=== PATIENT | male | born 1985 ===

== ENCOUNTER 2020-05-22 19:55 | Outpatient (CLI) | payer MEDICAID | END 2020-05-22 19:56 | disposition critical access hospital (66) | LOC: EMS 19:55 | PROVIDERS: ATTEND Surgery | DX: R40.4 Transient alteration of awareness (principal) | CPT/HCPCS: A0425; A0433; A0999 ==

== ENCOUNTER 2020-05-22 20:32 | Inpatient (IN) | payer MEDICAID ==
--- NOTE | 2020-05-22 20:40 | ED Physician Documentation ---
PD HPI ALTERED MENTAL STATUS - Stated complaint Stated Complaint: AMS - History obtained from History obtained from: EMS - Additional information Additional information: 34-year-old gentleman with history of hypertension presents by ambulance. Reportedly was drinking with some bodies and then injected some heroin into the left deltoid. Subsequently became obtunded with snoring respirations. Friend started CPR although there was no report of a lost pulse. Narcan was tried on scene but it sounds like nobody knew how to use it correctly. Paramedics were summoned and they administered initially 1.6 mg of Narcan and he did increase hi s respiratory rate but was still obtunded. Subsequently 2 more doses of Narcan were trialed without subsequent further improvement. Therefore the decision was made to intubate and he received 30 mg of etomidate and 200 mg of succinylcholine for the intubation and on the way here he received 4 mg of Versed and 10 mg of vecuronium. Review of Systems Unable to obtain: Intubated PD PAST MEDICAL HISTORY - Present Medications Home Medications: Ambulatory Orders Medication Instructions Recorded Confirmed Home Medications Unobtainable 05/22/20 05/22/20 [HOME MEDICATIONS UNOBTAINABLE] - Allergies Allergies/Adverse Reactions: Allergies Allergy/AdvReac Type Severity Reaction Status Date / Time No Known Drug Allergies Allergy Verified 05/22/20 20:59 PD ED PE NORMAL - Vitals Vital signs reviewed: Yes - General General: Other (He is unresponsive with small but not pinpoint pupils which are not reactive. He is intubated.) - Cardiac Cardiac: RRR, No murmur - Respiratory Respiratory: Clear bilaterally, Other (Being bagged) - Abdomen Abdomen: Soft, Non tender - Back Back: No CVA TTP, No spinal TTP - Derm Derm: Normal color, Warm and dry - Extremities Extremities: No edema, No calf tenderness / cord - Neuro Eye Opening: None Motor: None Verbal: None GCS Score: 3 Results - Vitals Vitals: Vital Signs - 24 hr 05/22/20 05/22/20 05/22/20 20:33 20:58 21:00 Temperature 36.2 C L Heart Rate 98 93 90 Respiratory 15 20 Rate Blood Pressure 141/91 H 127/88 H O2 Saturation 99 97 05/22/20 05/22/20 21:15 21:30 Temperature 36.1 C L 36.2 C L Heart Rate 95 93 Respiratory 20 20 Rate Blood Pressure 128/98 H 128/98 H O2 Saturation 100 99 Oxygen O2 Source Mechanical ventilator - EKG (time done) 2039 Rate: Rate (enter#) (92) Rhythm: NSR [place]: Normal Intervals: Normal CT QRS: Normal Ischemia: ST elevation c/w repol. No: ST depression Computer interpretation: Agree with computer - Labs Labs: Laboratory Tests 05/22/20 05/22/20 05/22/20 20:51 20:56 20:56 WBC 10.8 RBC 4.78 Hgb 14.3 Hct 42.3 MCV 88.5 MCH 29.9 MCHC 33.8 RDW 12.4 Plt Count 271 MPV 10.2 Neut # (Auto) 7.1 H Lymph # (Auto) 2.5 [place] # (Auto) 1.0 Eos # (Auto) 0.1 Baso # (Auto) 0.0 Absolute Nucleated RBC 0.00 Nucleated RBC % 0.0 VBG pH VBG pCO2 VBG pO2 VBG HCO3 VBG Total CO2 VBG O2 Saturation VBG Base Excess Sodium 143 Potassium 3.7 Chloride 104 Carbon Dioxide 21 Anion Gap 18.0 H BUN 18 Creatinine 1.1 Estimated GFR (MDRD) 76 L Glucose 115 H Calcium 8.9 Total Bilirubin 0.4 AST 54 H ALT 59 Alkaline Phosphatase 55 Total Protein 7.9 Albumin 4.5 Globulin 3.4 Albumin/Globulin Ratio 1.3 Lipase 34 TSH Urine Color YELLOW Urine Clarity CLEAR Urine pH 5.5 Ur Specific [place] 1.020 Urine Protein 30 H Urine Glucose (UA) NEGATIVE Urine Ketones NEGATIVE Urine Occult Blood TRACE-LYSE Urine Nitrite NEGATIVE Urine Bilirubin NEGATIVE Urine Urobilinogen 0.2 (NORMAL) Ur Leukocyte Esterase NEGATIVE Urine RBC 0-5 Urine WBC 0-3 Ur Squamous Epith Cells NONE SEEN Amorphous Sediment Rare Urine Bacteria None Seen Urine Casts 6-10 Hyaline Casts Urine Mucus Few Strands Ur Microscopic Review INDICATED Urine Culture Comments NOT INDICATED Salicylates < 6.0 Urine Opiates Screen POSITIVE H Ur Oxycodone Screen POSITIVE H Urine Methadone Screen NEGATIVE Ur Propoxyphene Screen NEGATIVE Acetaminophen < 10 L Ur Barbiturates Screen NEGATIVE Ur Tricyclics Screen NEGATIVE Ur Phencyclidine Scrn NEGATIVE Ur Amphetamine Screen NEGATIVE U Methamphetamines Scrn NEGATIVE U Benzodiazepines Scrn NEGATIVE Urine Cocaine Screen NEGATIVE U Cannabinoids Screen NEGATIVE Ethyl Alcohol 249.3 05/22/20 05/22/20 20:56 20:56 WBC RBC Hgb Hct MCV MCH MCHC RDW Plt Count MPV Neut # (Auto) Lymph # (Auto) [place] # (Auto) Eos # (Auto) Baso # (Auto) Absolute Nucleated RBC Nucleated RBC % VBG pH 7.250 L VBG pCO2 36.1 L VBG pO2 49.5 H VBG HCO3 15.5 L VBG Total CO2 16.6 L VBG O2 Saturation 76.8 VBG Base Excess -10.8 L Sodium Potassium Chloride Carbon Dioxide Anion Gap BUN Creatinine Estimated GFR (MDRD) Glucose Calcium Total Bilirubin AST ALT Alkaline Phosphatase Total Protein Albumin Globulin Albumin/Globulin Ratio Lipase TSH 1.86 Urine Color Urine Clarity Urine pH Ur Specific [place] Urine Protein Urine Glucose (UA) Urine Ketones Urine Occult Blood Urine Nitrite Urine Bilirubin Urine Urobilinogen Ur Leukocyte Esterase Urine RBC Urine WBC Ur Squamous Epith Cells Amorphous Sediment Urine Bacteria Urine Casts Urine Mucus Ur Microscopic Review Urine Culture Comments Salicylates Urine Opiates Screen Ur Oxycodone Screen Urine Methadone Screen Ur Propoxyphene Screen Acetaminophen Ur Barbiturates Screen Ur Tricyclics Screen Ur Phencyclidine Scrn Ur Amphetamine Screen U Methamphetamines Scrn U Benzodiazepines Scrn Urine Cocaine Screen U Cannabinoids Screen Ethyl Alcohol - Rads (name of study) 1v chest Radiology: EMP read contemporaneously (Right IJ Cath in SVW, ETT 3.7cm above fanta) Procedures - Central Line Central Line Preparation: Unable to obtain consent, Time out completed, Ultrasound used, Sterile prep and drape Central line location: Right IJ Central line type: Triple lumen Central line aftercare: Chlorhexidine disc placed, Secured, Placement confirmed, No complications PD MEDICAL DECISION MAKING - ED course ED course: 34-year-old gentleman presents after respiratory but not cardiac arrest after apparent drug alcohol overdose. No evidence or signs of trauma per the paramedics. He was intubated on the way here and on arrival his GCS 3. Central line was placed. He did have some episodic mild hypoxemia which seem to respond to suctioning and increasing his PEEP. He did to start to respond to noxious stimulus including suctioning of the endotracheal tube and propofol was started. No contact information to get a hold of family. We are calling [employer] to see if they have any phone numbers but at least it in the early part of his emergency department stay I am not able to get in touch with friends or family. Dr. Gibson will admit. Eventually I was able to contact his girlfriend, Sophie Saenz who is available at [phone]. - Critical Care Time(min): 45 Time Includes: Direct patient care, Review records, Reassess patient, Document care, Coordinate care, Medical consult Data interpretation: Labs, Pulse ox Procedures excluded from critical care time: Central IV, EKG Departure - Departure Disposition: 66 [facility] DC/Xfer Clinical Impression: Respiratory failure Qualifiers: Chronicity: acute Respiratory failure complication: unspecified whether with hypoxia or hypercapnia Qualified Code(s): J96.00 - Acute respiratory failure, unspecified whether with hypoxia or hypercapnia Drug overdose Qualifiers: Encounter type: initial encounter Injury intent: undetermined intent Qualified Code(s): T50.904A - Poisoning by unspecified drugs, medicaments and biological substances, undetermined, initial encounter Alcohol intoxication Qualifiers: Complication of substance-induced condition: with delirium Qualified Code(s): F10.921 - Alcohol use, unspecified with intoxication delirium Condition: Critical
[2020-05-22 20:53] LABS: BILIRUBIN,URINE NEGATIVE (NEGATIVE); GLUCOSE, URINE (UA) NEGATIVE (NEGATIVE); KETONES,URINE (UA) NEGATIVE (NEGATIVE); LEUKOCYTE ESTERASE, URINE NEGATIVE (NEGATIVE); MUDS CUTOFF CONCENTRATIONS CUTOFF CONC BELOW:; NITRITE,URINE NEGATIVE (NEGATIVE); OCCULT BLOOD,URINE TRACE-LYSE (NEGATIVE); PH,URINE 5.5 PH (5.0-7.5); PROTEIN,URINE 30 mg/dL (NEGATIVE); UROBILINOGEN,URINE 0.2 (NORMAL) E.U./dL (NORMAL)
[2020-05-22 20:55] LABS: CLARITY,URINE CLEAR (CLEAR)
[2020-05-22 21:03] LABS: BASOPHILS % (AUTO) 0.2 %; EOSINOPHILS # (AUTO) 0.1 10^3/uL (0.0-0.7); EOSINOPHILS % (AUTO) 0.6 %; HGB - HEMOGLOBIN 14.3 g/dL (14.0-18.0); LYMPHOCYTES # (AUTO) 2.5 10^3/uL (1.5-3.5); LYMPHOCYTES % (AUTO) 23.3 %; MEAN CORPUSCULAR HEMOGLOBIN 29.9 pg (27.0-31.0); MEAN CORPUSCULAR HGB CONC 33.8 g/dL (32.0-36.0); MEAN CORPUSCULAR VOLUME 88.5 fL (80.0-94.0); MEAN PLATELET VOLUME 10.2 fL (7.4-11.4); MONOCYTES % (AUTO) 9.2 %; NEUTROPHILS # (AUTO) 7.1 10^3/uL (1.5-6.6); PLT - PLATELET COUNT 271 10^3/uL (130-450); RED BLOOD COUNT 4.78 10^6/uL (4.70-6.10); RED CELL DISTRIBUTION WIDTH 12.4 % (12.0-15.0); WHITE BLOOD COUNT 10.8 x10^3/uL (4.8-10.8)
[2020-05-22 21:04] LABS: AMORPHOUS SEDIMENT,UR Rare /LPF; AMPHETAMINE SCREEN,URINE NEGATIVE (NEGATIVE); BACTERIA,URINE None Seen /HPF (None Seen); BENZODIAZEPINES SCREEN, URINE NEGATIVE (NEGATIVE); CASTS, URINE 6-10 Hyaline Casts /LPF; COCAINE SCREEN URINE NEGATIVE (NEGATIVE); METHADONE SCREEN, URINE NEGATIVE (NEGATIVE); METHAMPHETAMINES SCREEN, URINE NEGATIVE (NEGATIVE); MUCUS,URINE Few Strands; OPIATE SCREEN, URINE POSITIVE (NEGATIVE); OXYCODONE SCREEN, URINE POSITIVE (NEGATIVE); RBC,URINE 0-5 /HPF (0-5); SQUAMOUS EPITHELIAL CELL,UR NONE SEEN (<= Few); TRICYCLIC ANTIDEPRESSANT,URINE NEGATIVE (NEGATIVE)
[2020-05-22 21:05] LABS: PROPOXYPHENE SCREEN, URINE NEGATIVE (NEGATIVE)
[2020-05-22 21:05] LABS: VBG BASE EXCESS -10.8 mmol/L (-2 - +2); VBG PCO2 36.1 mmHg (41-51); VBG PH 7.25 (7.31-7.41); VBG PO2 49.5 mmHg (25-47); VBG TOTAL CO2 16.6 mmol/L (24-29)
[2020-05-22] MEDS ORDERED: PROPOFOL 500 MG/50 ML 500 MG/50 ML VIAL IV STA (21:11)
[2020-05-22] MEDS ORDERED: SODIUM CHLORIDE 0.9% 1,000 ML IV STA (21:16)
--- NOTE | 2020-05-22 21:16 | XRAY Report ---
PROCEDURE: Chest for Line Placement INDICATIONS: for post Central Line Placement. TECHNIQUE: One view of the chest was acquired. COMPARISON: None FINDINGS: Surgical changes and devices: ET tube tip is approximately 3.7 cm above the fanta. A right internal jugular central venous catheter tip is in the SVC. Lungs and pleura: No pleural effusions or pneumothorax. Lungs are clear. Mediastinum: Mediastinal contours appear normal. Heart size is enlarged. Bones and chest wall: No suspicious bony lesions. Overlying soft tissues appear unremarkable. IMPRESSION: Right internal jugular central venous catheter tip is in the SVC. ET tube is 3.7 cm above the fanta. No focal infiltrate, pleural effusion or pneumothorax. Reviewed by: Jorge Neri MD on 05/22/2020 9:14 PM PST Approved by: Jorge Neri MD on 05/22/2020 9:14 PM PST Station ID: [id number]
[2020-05-22 21:19] LABS: ACETAMINOPHEN < 10 ug/mL (10-30); ALBUMIN 4.5 g/dL (3.2-5.5); ALBUMIN/GLOBULIN RATIO 1.3 (1.0-2.2); ALKALINE PHOSPHATASE 55 IU/L (42-121); ALT ALANINE AMINOTRANSFERASE 59 IU/L (10-60); AST ASPARTATE AMINOTRANSFERASE 54 IU/L (10-42); BILIRUBIN,TOTAL 0.4 mg/dL (0.2-1.0); BUN - BLOOD UREA NITROGEN 18 mg/dL (6-20); CALCIUM 8.9 mg/dL (8.5-10.3); CARBON DIOXIDE - CO2 21 mmol/L (21-32); CHLORIDE 104 mmol/L (101-111); CREATININE 1.1 mg/dL (0.6-1.2); GLUCOSE 115 mg/dL (70-100); LIPASE 34 U/L (22-51); SALICYLATE < 6.0 mg/dL; SODIUM 143 mmol/L (135-145); TOTAL PROTEIN 7.9 g/dL (6.7-8.2)
[2020-05-22] MEDS ORDERED: ONDANSETRON 4 MG/2 ML VIAL IVP PRN (21:33)
[2020-05-22] MEDS ORDERED: ONDANSETRON ODT 4 MG TABLET TL PRN (21:33)
--- NOTE | 2020-05-22 21:45 | HISTORY & PHYSICAL EXAMINATION ---
Chief Complaint - Chief Complaint Chief Complaint: Acute respiratory failure at a friend's apartment after heroin History of Present Illness - Admitted From Admitted From:: Friend's apartment, via EMS - History Obtained From Records Reviewed: [facility] History obtained from: Dr. Salazar Exam Limitations: Patient is unable to provide any history for himself and there is no contac - History of Present Illness HPI Comment/Other: Mr. Carter is a 34-year-old white male who is brought in by ambulance to the emergency room after heroin overdose. Unfortunately there is no demographic information available for him so I am unable to get any history other than what is provided by the emergency room doctor and sheet metal shop foreman. sheet metal shop foreman report that he has a past medical history of high blood pressure but there is no medications listed for him. Unobtainable. He was drinking with friends in a friend's apartment. He decided to do a heroin shot in his deltoid. He had a loss of consciousness shortly after that. He was unarousable and they panicked and started CPR. EMS was called. By the time EMS arrived there, they did find a pulse. However he was with a very slow respiration rate and he was intubated after succinylcholine and vecuronium. In the emergency room he has a [place] Coma Scale of 3. His vital signs are normal. On 50% FiO2, his O2 sat was 88%. Although there was no witnessed aspiration, the ET tube has copious thick secretions with possible vomitus. His alcohol level is 249. His talk screen is positive for opiates, oxycodone, ethyl alcohol to 49.3. Salicylates negative, acetaminophen less than 10. All other substances negative on the tox screen. We are placing him in the ICU. He already has a central line. We will observe him overnight and see if we can start extubating him tomorrow morning. He will be sedated and paralyzed. We will repeat chest x-rays to make sure he is not developing aspiration pneumonia. History - Past Medical History Cardiovascular: reports: Hypertension Other Past Medical History: Unobtainable at this time - Past Surgical History Other past surgical history: Unobtainable at this time - Family & Social History Family History Comment/Other: Unobtainable at this time Living arrangement: Other (Unobtainable at this time) Living Situation: Other (Unobtainable at this time) Social History Notes: Unobtainable at this time - POLST Patient has POLST: No POLST Status: Full Code Meds/Allgy - Home Medications Home Medications: Ambulatory Orders Medication Instructions Recorded Confirmed Home Medications Unobtainable 05/22/20 05/22/20 [HOME MEDICATIONS UNOBTAINABLE] - Allergies Allergies/Adverse Reactions: Allergies Allergy/AdvReac Type Severity Reaction Status Date / Time No Known Drug Allergies Allergy Verified 05/22/20 20:59 Review of Systems - Other Findings Other Findings: No review of systems obtainable at this time since this patient is sedated and on a vent Prior Level of Functionality: Unknown Exam - Vital Signs Reviewed Vital Signs: Yes Vital Signs: Vital Signs x48h Temp Pulse Resp BP Pulse Ox 05/22/20 21:30 36.2 C L 93 20 128/98 H 99 05/22/20 21:15 36.1 C L 95 20 128/98 H 100 05/22/20 21:00 90 05/22/20 20:58 36.2 C L 93 20 127/88 H 97 05/22/20 20:33 98 15 141/91 H 99 Conclusion/Plan - Problem List (1) Acute respiratory failure with hypoxia Conclusion/Plan: Due to #2 as listed below which is due to #3. Patient has been intubated to protect his airway. His pupils are reactive. 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 Plan: Treatment as stated above in #1 (3) Opioid overdose Conclusion/Plan: Screen is negative for all else. We will check hepatitis panel for completeness sake. HIV panel. We will also have social work consult to see if we get more history from this gentleman. Qualifiers: Encounter type: initial encounter (4) Hypertension Conclusion/Plan: This is per history from Dr. Salazar who got her from the sheet metal shop foreman. At this time no home medication list available. We will continue to monitor and treat as needed. At this time he does not need medication. Qualifiers: Hypertension type: essential hypertension Qualified Code(s): I10 - Essential (primary) hypertension - Lab Results Lab results reviewed: Yes Fish Bones: 05/22/20 20:56 05/22/20 20:56 - Diagnostic Imaging Results Diagnostic Imaging Results: positive: Final report reviewed Diagnostic Imaging Results Comments: EXAM: [id number] ([id number]) PROCEDURE: Chest for Line Placement INDICATIONS: for post Central Line Placement. TECHNIQUE: One view of the chest was acquired. COMPARISON: None FINDINGS: Surgical changes and devices: ET tube tip is approximately 3.7 cm above the fanta. A right internal jugular central venous catheter tip is in the SVC. Lungs and pleura: No pleural effusions or pneumothorax. Lungs are clear. Mediastinum: Mediastinal contours appear normal. Heart size is enlarged. Bones and chest wall: No suspicious bony lesions. Overlying soft tissues appear unremarkable. IMPRESSION: Right internal jugular central venous catheter tip is in the SVC. ET tube is 3.7 cm above the fanta. No focal infiltrate, pleural effusion or pneumothorax. Reviewed by: Jorge Neri MD on 05/22/2020 9:14 PM PST Approved by: Jorge Neri MD on 05/22/2020 9:14 PM PST Core Measures - Anticipated LOS I expect patient to be DC'd or transferred within 96 hours.: Yes - DVT/VTE - Prophylaxis VTE/DVT Device ordered at admit?: Yes
[2020-05-22] MEDS ORDERED: ENOXAPARIN 40 MG/0.4 ML SYRINGE SUBQ STA (21:58)
[2020-05-22 22:29] LABS: C. PNEUMONIAE- RESP PCR PANEL NOT DETECTED
[2020-05-22] MEDS: PROPOFOL 500 MG/50 ML 500 MG/50 ML VIAL IV SCH ×2 (23:00→23:30)
[2020-05-22] MEDS: CHLORHEXIDINE GLUCONATE 15 ML UDC PO SCH (23:02)
[2020-05-22 23:23] LABS: ABG BASE EXCESS -7.2 mmol/L (-2.0-3.0); ABG HCO3 16.5 mmol/L (22.0-26.0); ABG OXYGEN SATURATION 95 % (94-98); ABG PCO2 29 mmHg (34-45); ABG PH 7.38 (7.35-7.45); ABG PO2 82 mmHg (80-100); ABG TCO2 17.4 MMOL/L (21.0-29.0); ALLEN TEST POSITIVE
[2020-05-22] MEDS: SODIUM CHLORIDE FLUSH 0.9% 10 ML SYRINGE IVP SCH (23:31)
[2020-05-23] MEDS: LACTATED RINGERS 1,000 ML IV SCH ×5 (00:18→20:08)
[2020-05-23] MEDS: ACETAMINOPHEN 1,000 MG/100 ML 100 ML IV PRN ×4 (00:37→21:02)
[2020-05-23] MEDS: PROPOFOL 500 MG/50 ML 500 MG/50 ML VIAL IV SCH ×4 (01:53→07:38)
[2020-05-23] MEDS: metroNIDAZOLE 500 MG/100 ML 500 MG/100 ML BAG IV SCH ×3 (01:58→17:28)
[2020-05-23] MEDS: VECURONIUM 10 MG VIAL IVP PRN ×2 (03:23→05:58)
[2020-05-23] MEDS ORDERED: WATER FOR INJECTION,STERILE 10 ML MC ONE ×5 (03:27→06:02)
[2020-05-23] MEDS ORDERED: METOPROLOL 5 MG/5 ML VIAL IVP ONE ×2 (03:43→03:47)
[2020-05-23] MEDS ORDERED: LORazepam 2 MG/ML VIAL IVP STA (05:59)
[2020-05-23 06:04] LABS: ALBUMIN 3.9 g/dL (3.2-5.5); ALBUMIN/GLOBULIN RATIO 1.4 (1.0-2.2); BILIRUBIN,TOTAL 0.5 mg/dL (0.2-1.0); CALCIUM 8.6 mg/dL (8.5-10.3); TOTAL PROTEIN 6.7 g/dL (6.7-8.2)
[2020-05-23] MEDS ORDERED: fentaNYL 100 MCG/2 ML VIAL IVP STA (06:19)
[2020-05-23] MEDS: SODIUM CHLORIDE FLUSH 0.9% 10 ML SYRINGE IVP PRN ×2 (07:08→23:42)
[2020-05-23] MEDS: PANTOPRAZOLE 40 MG VIAL IVP SCH (07:10)
[2020-05-23 07:26] LABS: MAGNESIUM 1.6 mg/dL (1.7-2.8)
--- NOTE | 2020-05-23 07:28 | PHARMACY PROGRESS NOTE ---
- Best Possible Medication History Admit Date and Time: 05/22/202132 Processed by: Nursing Medication History completed: No (PER RN, INFORMATION UNOBTAINABLE) Patient Interview: Pt unable to participate As the person ultimately responsible for medication therapy, providers are able to order a medication from an existing home medication list in [facility] via the "Reconcile Routine" prior to Confirmation of that medication by litigation support analyst. Such practice is discouraged except when the physician, in their clinical judgment, deems that a medical need exists for a medication without regard to previous use.
--- NOTE | 2020-05-23 08:35 | PROVIDER PROGRESS NOTE ---
Assessment/Plan - Problem List (1) Acute respiratory failure with hypoxia Assessment/Plan: He basically suffered a respiratory arrest after the heroin injection and alcohol use and was given CPR plus rescue breaths were started on the scene then bagging in the ambulance on the way to the ER where he was then intubated. He has been able to be extubated this morning. Repeat chest x-ray for possible aspiration pneumonia planned, as he had copious secretions in the ER before intubation and possible vomit was being aspirated. Continue with IV Flagyl for that. Continue supplemental oxygen and wean down as tolerated. (2) Fever Assessment/Plan: Awaiting a chest x-ray result to rule out pneumonitis or aspiration pneumonia. His night nurse noted that his urine was cloudy therefore we will also send off a urinalysis. He was started empirically on Flagyl by the piano technician/admitting doctor because of the witnessed aspiration plus secretions being aspirated from his airway. Follow WBC daily (3) Aspiration into respiratory tract Assessment/Plan: As described in #1. Continue with IV Flagyl. Follow chest x-ray for worsening pneumonitis/consolidation. We will start Mucinex for pulmonary toilet when he is more awake. (4) Opioid overdose Qualifiers: Encounter type: subsequent encounter Injury intent: accidental or unintentional Qualified Code(s): T40.2X1D - Poisoning by other opioids, accidental (unintentional), subsequent encounter Assessment/Plan: This was unintentional and the heroin dose is unknown. Narcan was minimally helpful in reversing the effect and he needed intubation for respiratory arrest. Social Work advised about the entire presentation. (5) Alcohol intoxication Qualifiers: Qualified Code(s): F10.921 - Alcohol use, unspecified with intoxication delirium Assessment/Plan: As per Hx. (6) Hypertension Qualifiers: Hypertension type: essential hypertension Qualified Code(s): I10 - Essential (primary) hypertension Assessment/Plan: As per his girlfriend Sarah, he does not take blood pressure meds yet. - Current Meds Current Meds: Current Medications Generic Name Dose Route Start Last Admin Trade Name Freq PRN Reason Stop Dose Admin Chlorhexidine Gluconate 15 ml 05/22/20 23:00 05/22/20 23:02 Chlorhexidine Gluconate 15 Ml Udc PO 15 ml BID EUSEBIA Administration Acetaminophen 100 mls @ 400 mls/hr 05/22/20 22:26 05/23/20 07:45 Ofirmev IV 400 mls/hr Q6HR PRN Administration FEVER > 100.5 F Lactated Ringer's 1,000 mls @ 125 mls/hr 05/22/20 23:45 05/23/20 07:00 Lr IV 125 mls/hr .Q8H EUSEBIA Infusion Metronidazole 500 mg in 100 mls @ 100 mls/hr 05/23/20 02:00 05/23/20 02:58 Flagyl 500 Mg/100 Ml IV 05/27/20 18:59 Infused Q8H EUSEBIA Infusion Pantoprazole Sodium 40 mg 05/23/20 07:00 05/23/20 07:10 Pantoprazole 40 Mg Vial IVP 40 mg QDAC EUSEBIA Administration Sodium Chloride 10 ml 05/22/20 21:33 05/23/20 07:08 Sodium Chloride Flush 0.9% 10 Ml Syringe IVP 10 ml PRN PRN Administration NEEDED PER PROVIDER ORDERS Sodium Chloride 10 ml 05/23/20 01:00 05/22/20 23:31 Sodium Chloride Flush 0.9% 10 Ml Syringe IVP 10 ml 0100,0900,1700 EUSEBIA Administration - Lab Result Fish Bone Diagrams: 05/22/20 20:56 05/23/20 05:30 - Additional Planning My Orders: My Active Orders 05/23/20 08:20 Extubation [Extubate] [RC] ONCE 05/23/20 08:28 Telemetry- [RC] Q4HR 05/24/20 05:00 BMP - BASIC METABOLIC PANEL [CHEM] DAILYLAB CBC - COMP BLD CT W/AUTO DIFF [HEME] DAILYLAB Subjective - Subjective Patient Reports: Feeling Better, Resting Comfortably Nursing Reports: Other (Per his RN Jadyn, he is able to carry on a conversation and has good long-term memory has very poor short-term memory and keeps repeating the same question repeatedly, about his current situation.) Objective Vital Signs: Vital Signs - 24 hr 05/22/20 05/22/20 05/22/20 20:33 20:58 21:00 Temperature 36.2 C L Heart Rate 98 93 90 Heart Rate [ Monitoring electrodes] Respiratory 15 20 Rate Blood Pressure 141/91 H 127/88 H Blood Pressure [Right Brachial artery] O2 Saturation 99 97 05/22/20 05/22/20 05/22/20 21:15 21:30 21:51 Temperature 36.1 C L 36.2 C L 36.3 C L Heart Rate 95 93 89 Heart Rate [ Monitoring electrodes] Respiratory 20 20 20 Rate Blood Pressure 128/98 H 128/98 H 111/88 H Blood Pressure [Right Brachial artery] O2 Saturation 100 99 97 05/22/20 05/22/20 05/22/20 22:15 23:00 23:23 Temperature 36.5 C Heart Rate Heart Rate [ 94 85 Monitoring electrodes] Respiratory 20 20 Rate Blood Pressure Blood Pressure 129/97 H 107/84 H [Right Brachial artery] O2 Saturation 96 99 05/22/20 05/23/20 05/23/20 23:30 00:00 00:32 Temperature 37.2 C Heart Rate 84 Heart Rate [ 92 Monitoring electrodes] Respiratory 16 Rate Blood Pressure Blood Pressure 143/111 H [Right Brachial artery] O2 Saturation 100 05/23/20 05/23/20 05/23/20 01:11 01:30 02:00 Temperature 37.9 C Heart Rate 141 H Heart Rate [ 122 H 122 H Monitoring electrodes] Respiratory 16 16 Rate Blood Pressure Blood Pressure 108/72 121/87 H [Right Brachial artery] O2 Saturation 95 98 05/23/20 05/23/20 05/23/20 03:00 03:30 03:36 Temperature Heart Rate 150 H Heart Rate [ 120 H 153 H Monitoring electrodes] Respiratory 16 Rate Blood Pressure Blood Pressure 103/73 140/110 H [Right Brachial artery] O2 Saturation 97 05/23/20 05/23/20 05/23/20 03:38 03:40 03:45 Temperature Heart Rate Heart Rate [ 115 H 100 Monitoring electrodes] Respiratory Rate Blood Pressure 140/110 H Blood Pressure 134/91 H 113/81 H [Right Brachial artery] O2 Saturation 05/23/20 05/23/20 05/23/20 03:50 04:00 04:15 Temperature 37.8 C Heart Rate Heart Rate [ 112 H 108 H 109 H Monitoring electrodes] Respiratory 16 Rate Blood Pressure Blood Pressure 127/79 117/77 107/69 [Right Brachial artery] O2 Saturation 96 05/23/20 05/23/20 05/23/20 04:30 05:00 05:35 Temperature Heart Rate 111 H Heart Rate [ 105 H 103 H Monitoring electrodes] Respiratory 16 Rate Blood Pressure Blood Pressure 110/74 109/69 [Right Brachial artery] O2 Saturation 98 05/23/20 05/23/20 05/23/20 06:00 07:00 07:09 Temperature Heart Rate 108 H Heart Rate [ 113 H 104 H Monitoring electrodes] Respiratory 16 16 Rate Blood Pressure Blood Pressure 112/77 108/77 [Right Brachial artery] O2 Saturation 97 97 05/23/20 05/23/20 07:30 08:05 Temperature 39 C H Heart Rate 121 H Heart Rate [ 106 H Monitoring electrodes] Respiratory 16 Rate Blood Pressure Blood Pressure 113/76 [Right Brachial artery] O2 Saturation 97 Oxygen O2 Source Mechanical ventilator I&O (Last 24 Hrs): Intake and Output Totals x24h 05/21/20 05/22/20 05/23/20 23:59 23:59 23:59 Intake Total 0688.239 5964.746 Output Total 800 885 Balance 338.327 559.746 General: Alert HEENT: Atraumatic, EOMI, Mucous membr. moist/pink Neck: Supple, No JVD Neuro: Alert, Disoriented, Non Focal Cardiovascular: Regular rate, No murmurs Respiratory: No respiratory distress, Breath sounds nml, Other (Tender in the sternal area (where he had CPR)) Abdomen: Soft Extremities: No edema - Results Results: Laboratory Results WBC 10.8 x10^3/uL (4.8-10.8) 05/22/20 20:56 RBC 4.78 10^6/uL (4.70-6.10) 05/22/20 20:56 Hgb 14.3 g/dL (14.0-18.0) 05/22/20 20:56 Hct 42.3 % (42.0-52.0) 05/22/20 20:56 MCV 88.5 fL (80.0-94.0) 05/22/20 20:56 MCH 29.9 pg (27.0-31.0) 05/22/20 20:56 MCHC 33.8 g/dL (32.0-36.0) 05/22/20 20:56 RDW 12.4 % (12.0-15.0) 05/22/20 20:56 Plt Count 271 10^3/uL (130-450) 05/22/20 20:56 MPV 10.2 fL (7.4-11.4) 05/22/20 20:56 Neut # (Auto) 7.1 10^3/uL (1.5-6.6) H 05/22/20 20:56 Lymph # (Auto) 2.5 10^3/uL (1.5-3.5) 05/22/20 20:56 [place] # (Auto) 1.0 10^3/uL (0.0-1.0) 05/22/20 20:56 Eos # (Auto) 0.1 10^3/uL (0.0-0.7) 05/22/20 20:56 Baso # (Auto) 0.0 10^3/uL (0.0-0.1) 05/22/20 20:56 Absolute Nucleated RBC 0.00 x10^3/uL 05/22/20 20:56 Nucleated RBC % 0.0 /100WBC 05/22/20 20:56 Bld Gas Analysis Time 2320 05/22/20 23:15 Sample Site RIGHT RADIAL 05/22/20 23:15 ABG pH 7.38 (7.35-7.45) 05/22/20 23:15 ABG pCO2 29 mmHg (34-45) L 05/22/20 23:15 ABG pO2 82 mmHg (80-100) 05/22/20 23:15 ABG HCO3 16.5 mmol/L (22.0-26.0) L 05/22/20 23:15 ABG Total CO2 17.4 MMOL/L (21.0-29.0) L 05/22/20 23:15 ABG O2 Saturation 95 % (94-98) 05/22/20 23:15 ABG Base Excess -7.2 mmol/L (-2.0-3.0) L 05/22/20 23:15 [place] Test POSITIVE 05/22/20 23:15 VBG pH 7.250 (7.31-7.41) L 05/22/20 20:56 VBG pCO2 36.1 mmHg (41-51) L 05/22/20 20:56 VBG pO2 49.5 mmHg (25-47) H 05/22/20 20:56 VBG HCO3 15.5 mmol/L (23-28) L 05/22/20 20:56 VBG Total CO2 16.6 mmol/L (24-29) L 05/22/20 20:56 VBG O2 Saturation 76.8 % (60-80) 05/22/20 20:56 VBG Base Excess -10.8 mmol/L (-2 - +2) L 05/22/20 20:56 Respiration Rate 20 b/min 05/22/20 23:15 O2 Delivery Device VENTILATOR 05/22/20 23:15 Vent Mode SIMV 05/22/20 23:15 FiO2 40.00 05/22/20 23:15 Tidal Volume 550 mL 05/22/20 23:15 PEEP 5 cmH2O 05/22/20 23:15 Pressure Support Vent 10 cmH2O 05/22/20 23:15 Sodium 144 mmol/L (135-145) 05/23/20 05:30 Potassium 3.4 mmol/L (3.5-5.0) L 05/23/20 05:30 Chloride 112 mmol/L (101-111) H 05/23/20 05:30 Carbon Dioxide 22 mmol/L (21-32) 05/23/20 05:30 Anion Gap 10.0 (6-13) 05/23/20 05:30 BUN 16 mg/dL (6-20) 05/23/20 05:30 Creatinine 1.0 mg/dL (0.6-1.2) 05/23/20 05:30 Estimated GFR (MDRD) 85 (>89) L 05/23/20 05:30 Glucose 131 mg/dL (70-100) H 05/23/20 05:30 Calcium 8.6 mg/dL (8.5-10.3) 05/23/20 05:30 Phosphorus 2.0 mg/dL (2.5-4.6) L 05/23/20 05:30 Magnesium 1.6 mg/dL (1.7-2.8) L 05/23/20 05:30 Total Bilirubin 0.5 mg/dL (0.2-1.0) 05/23/20 05:30 AST 38 IU/L (10-42) 05/23/20 05:30 ALT 48 IU/L (10-60) 05/23/20 05:30 Alkaline Phosphatase 46 IU/L (42-121) 05/23/20 05:30 Total Protein 6.7 g/dL (6.7-8.2) 05/23/20 05:30 Albumin 3.9 g/dL (3.2-5.5) 05/23/20 05:30 Globulin 2.8 g/dL (2.1-4.2) 05/23/20 05:30 Albumin/Globulin Ratio 1.4 (1.0-2.2) 05/23/20 05:30 Lipase 34 U/L (22-51) 05/22/20 20:56 TSH 1.86 uIU/mL (0.34-5.60) 05/22/20 20:56 Urine Color YELLOW 05/22/20 20:51 Urine Clarity CLEAR (CLEAR) 05/22/20 20:51 Urine pH 5.5 PH (5.0-7.5) 05/22/20 20:51 Ur Specific Elfrida 1.020 (1.002-1.030) 05/22/20 20:51 Urine Protein 30 mg/dL (NEGATIVE) H 05/22/20 20:51 Urine Glucose (UA) NEGATIVE mg/dL (NEGATIVE) 05/22/20 20:51 Urine Ketones NEGATIVE mg/dL (NEGATIVE) 05/22/20 20:51 Urine Occult Blood TRACE-LYSE (NEGATIVE) 05/22/20 20:51 Urine Nitrite NEGATIVE (NEGATIVE) 05/22/20 20:51 Urine Bilirubin NEGATIVE (NEGATIVE) 05/22/20 20:51 Urine Urobilinogen 0.2 (NORMAL) E.U./dL (NORMAL) 05/22/20 20:51 Ur Leukocyte Esterase NEGATIVE (NEGATIVE) 05/22/20 20:51 Urine RBC 0-5 /HPF (0-5) 05/22/20 20:51 Urine WBC 0-3 /HPF (0-3) 05/22/20 20:51 Ur Squamous Epith Cells NONE SEEN (<= Few) 05/22/20 20:51 Amorphous Sediment Rare /LPF 05/22/20 20:51 Urine Bacteria None Seen /HPF (None Seen) 05/22/20 20:51 Urine Casts 6-10 Hyaline Casts /LPF 05/22/20 20:51 Urine Mucus Few Strands 05/22/20 20:51 Ur Microscopic Review INDICATED 05/22/20 20:51 Urine Culture Comments NOT INDICATED 05/22/20 20:51 Nasal Adenovirus (PCR) NOT DETECTED 05/22/20 21:23 Nasal B. parapertussis DNA (PCR) NOT DETECTED 05/22/20 21:23 Nasal Coronavir 229E PCR NOT DETECTED 05/22/20 21:23 Nasal Coronavir HKU1 PCR NOT DETECTED 05/22/20 21:23 Nasal Coronavir NL63 PCR NOT DETECTED 05/22/20 21:23 Nasal Coronavir OC43 PCR NOT DETECTED 05/22/20 21:23 Nasal Enterovir/Rhinovir PCR NOT DETECTED 05/22/20 21:23 Nasal Influenza B PCR NOT DETECTED 05/22/20 21:23 Nasal Influenza A PCR NOT DETECTED 05/22/20 21:23 Nasal Parainfluen 1 PCR NOT DETECTED 05/22/20 21:23 Nasal Parainfluen 2 PCR NOT DETECTED 05/22/20 21:23 Nasal Parainfluen 3 PCR NOT DETECTED 05/22/20 21:23 Nasal Parainfluen 4 PCR NOT DETECTED 05/22/20 21:23 Nasal RSV (PCR) NOT DETECTED 05/22/20 21:23 Nasal Screen MRSA (PCR) NEGATIVE (NEGATIVE) 05/22/20 22:10 Nasal B.pertussis DNA PCR NOT DETECTED 05/22/20 21:23 Nasal C.pneumoniae (PCR) NOT DETECTED 05/22/20 21:23 King Human Metapneumo PCR NOT DETECTED 05/22/20 21:23 Nasal M.pneumoniae (PCR) NOT DETECTED 05/22/20 21:23 Nasal SARS-CoV-2 (PCR) NOT DETECTED 05/22/20 21:23 Salicylates < 6.0 mg/dL 05/22/20 20:56 Urine Opiates Screen POSITIVE (NEGATIVE) H 05/22/20 20:51 Ur Oxycodone Screen POSITIVE (NEGATIVE) H 05/22/20 20:51 Urine Methadone Screen NEGATIVE (NEGATIVE) 05/22/20 20:51 Ur Propoxyphene Screen NEGATIVE (NEGATIVE) 05/22/20 20:51 Acetaminophen < 10 ug/mL (10-30) L 05/22/20 20:56 Ur Barbiturates Screen NEGATIVE (NEGATIVE) 05/22/20 20:51 Ur Tricyclics Screen NEGATIVE (NEGATIVE) 05/22/20 20:51 Ur Phencyclidine Scrn NEGATIVE (NEGATIVE) 05/22/20 20:51 Ur Amphetamine Screen NEGATIVE (NEGATIVE) 05/22/20 20:51 U Methamphetamines Scrn NEGATIVE (NEGATIVE) 05/22/20 20:51 U Benzodiazepines Scrn NEGATIVE (NEGATIVE) 05/22/20 20:51 Urine Cocaine Screen NEGATIVE (NEGATIVE) 05/22/20 20:51 U Cannabinoids Screen NEGATIVE (NEGATIVE) 05/22/20 20:51 Ethyl Alcohol 249.3 mg/dL 05/22/20 20:56
[2020-05-23] MEDS: SODIUM CHLORIDE FLUSH 0.9% 10 ML SYRINGE IVP SCH ×3 (08:47→23:41)
[2020-05-23] MEDS: CHLORHEXIDINE GLUCONATE 15 ML UDC PO SCH ×2 (10:05→20:23)
--- NOTE | 2020-05-23 10:36 | XRAY Report ---
PROCEDURE: Chest for Line Placement INDICATIONS: OG tube placement TECHNIQUE: One view of the chest was acquired. COMPARISON: Chest x-ray one view, 05/22/2020 at 0844 hours. FINDINGS: Surgical changes and devices: Interval placement of a oral gastric tube. The tip of the orogastric tu be projecting to the stomach. An endotracheal tube is present with the tip 6.6 cm above fanta. A rig ht right IJ central line is seen with the tip projecting to the atrial caval junction. Lungs and pleura: No pleural effusions or pneumothorax. Lungs are clear. Mediastinum: Mediastinal contours appear normal. Heart size is normal. Bones and chest wall: No suspicious bony lesions. Overlying soft tissues appear unremarkable. IMPRESSION: 1. Tubes and lines are as described. 2. The tip of the endotracheal tube measures 6.6 cm above fanta. Please confirm desired position for placement. No significant discrepancy with the preliminary interpretation. Reviewed by: Clint Caal MD on 05/23/2020 10:35 AM PST Approved by: Clint Caal MD on 05/23/2020 10:35 AM PST Station ID: [id number]
--- NOTE | 2020-05-23 10:57 | XRAY Report ---
PROCEDURE: Chest 1 View X-Ray INDICATIONS: fu aspiration on vent TECHNIQUE: One view of the chest was acquired. COMPARISON: 05/22/2020 chest x-ray FINDINGS: Surgical changes and devices: Right internal jugular vein central venous catheter, tip of which is in the mid SVC. Lungs and pleura: No pleural effusions or pneumothorax. Lungs are clear. Mediastinum: Mediastinal contours appear normal. Heart size is normal. Bones and chest wall: No suspicious bony lesions. Overlying soft tissues appear unremarkable. IMPRESSION: No acute process. Reviewed by: Elisa Knutson MD on 05/23/2020 10:55 AM [facility] Approved by: Elisa Knutson MD on 05/23/2020 10:55 AM [facility] Station ID: [id number]
[2020-05-23 11:02] LABS: BILIRUBIN,URINE NEGATIVE (NEGATIVE); GLUCOSE, URINE (UA) NEGATIVE (NEGATIVE); KETONES,URINE (UA) NEGATIVE (NEGATIVE); LEUKOCYTE ESTERASE, URINE NEGATIVE (NEGATIVE); NITRITE,URINE NEGATIVE (NEGATIVE); OCCULT BLOOD,URINE MODERATE (NEGATIVE); PROTEIN,URINE TRACE mg/dL (NEGATIVE); UROBILINOGEN,URINE 0.2 (NORMAL) E.U./dL (NORMAL)
[2020-05-23 11:06] LABS: CLARITY,URINE CLEAR (CLEAR)
[2020-05-23 11:43] LABS: BACTERIA,URINE None Seen /HPF (None Seen); SQUAMOUS EPITHELIAL CELL,UR NONE SEEN (<= Few)
[2020-05-23] MEDS ORDERED: POTASSIUM CHLORIDE 20 MEQ TABLET PO SCH (13:10)
[2020-05-23] MEDS: MAGNESIUM OXIDE 400 MG TABLET PO SCH ×2 (14:40→19:01)
[2020-05-23] MEDS: NEUTRA-PHOS 250 MG TABLET PO SCH ×2 (14:59→17:03)
[2020-05-23] MEDS: KETOROLAC 30 MG/ML VIAL IVP PRN ×2 (17:03→23:48)
[2020-05-24] MEDS: metroNIDAZOLE 500 MG/100 ML 500 MG/100 ML BAG IV SCH (02:06)
[2020-05-24] MEDS: traMADol 50 MG TABLET PO PRN ×3 (02:45→17:53)
[2020-05-24] MEDS: SODIUM CHLORIDE FLUSH 0.9% 10 ML SYRINGE IVP PRN ×4 (03:16→06:19)
[2020-05-24 03:30] LABS: BASOPHILS % (AUTO) 0.2 %; EOSINOPHILS # (AUTO) 0.2 10^3/uL (0.0-0.7); EOSINOPHILS % (AUTO) 1.5 %; HGB - HEMOGLOBIN 11.6 g/dL (14.0-18.0); LYMPHOCYTES # (AUTO) 2.7 10^3/uL (1.5-3.5); LYMPHOCYTES % (AUTO) 23.3 %; MEAN CORPUSCULAR HEMOGLOBIN 29.6 pg (27.0-31.0); MEAN CORPUSCULAR HGB CONC 33.6 g/dL (32.0-36.0); MEAN PLATELET VOLUME 10.2 fL (7.4-11.4); MONOCYTES # (AUTO) 1.1 10^3/uL (0.0-1.0); MONOCYTES % (AUTO) 9.4 %; NEUTROPHILS # (AUTO) 7.6 10^3/uL (1.5-6.6); NEUTROPHILS % (AUTO) 65.2 %; PLT - PLATELET COUNT 183 10^3/uL (130-450); RED BLOOD COUNT 3.92 10^6/uL (4.70-6.10); RED CELL DISTRIBUTION WIDTH 12.5 % (12.0-15.0); WHITE BLOOD COUNT 11.6 x10^3/uL (4.8-10.8)
[2020-05-24 03:42] LABS: CALCIUM 8.6 mg/dL (8.5-10.3); CREATININE 0.9 mg/dL (0.6-1.2); MAGNESIUM 1.8 mg/dL (1.7-2.8); PHOSPHORUS 2.3 mg/dL (2.5-4.6)
[2020-05-24] MEDS ORDERED: SODIUM CHLORIDE FLUSH 0.9% 10 ML SYRINGE IVP PRN (05:10)
[2020-05-24] MEDS: KETOROLAC 30 MG/ML VIAL IVP PRN ×3 (05:27→19:55)
[2020-05-24] MEDS ORDERED: POTASSIUM CHLORIDE 20 MEQ TABLET PO ONE (05:49)
[2020-05-24] MEDS: PANTOPRAZOLE 40 MG VIAL IVP SCH (06:19)
[2020-05-24] MEDS: NEUTRA-PHOS 250 MG TABLET PO SCH ×2 (06:19→09:20)
[2020-05-24] MEDS: CHLORHEXIDINE GLUCONATE 15 ML UDC PO SCH (07:28)
--- NOTE | 2020-05-24 08:39 | XRAY Report ---
PROCEDURE: Chest 1 View X-Ray INDICATIONS: F/U aspiration, ? infiltrate TECHNIQUE: One view of the chest was acquired. COMPARISON: Prior chest plain film 05/23/2020 and also 05/22/2020 FINDINGS: Surgical changes and devices: Right internal jugular central line extends into the expected region of the distal SVC.. Lungs and pleura: No pleural effusions or pneumothorax. Lungs are clear considering reduced inspira tory volume. Mediastinum: Mediastinal contours appear normal. Heart size is normal. Bones and chest wall: No suspicious bony lesions. Overlying soft tissues appear unremarkable. IMPRESSION: Central line in normal position, no pneumothorax. Inspiratory volume is mildly reduced with resultant crowding of the bronchovascular markings but no area of aspiration/pneumonia is found. Reviewed by: Wayne Messina MD on 05/24/2020 8:37 AM PST Approved by: Wayne Messina MD on 05/24/2020 8:37 AM PST Station ID: [id number]
[2020-05-24] MEDS: SODIUM CHLORIDE FLUSH 0.9% 10 ML SYRINGE IVP SCH ×2 (09:20→17:54)
[2020-05-24] MEDS: polyethylene glycoL 3350 17 GM PACKET PO SCH (09:20)
[2020-05-24] MEDS ORDERED: LORazepam 2 MG/ML VIAL IVP PRN (10:44)
[2020-05-24] MEDS ORDERED: ACETAMINOPHEN 325 MG TABLET PO PRN (10:48)
[2020-05-24] MEDS: PRENATAL VITAMIN TABLET PO SCH (12:39)
[2020-05-24] MEDS: THIAMINE 100 MG TABLET PO SCH (12:40)
--- NOTE | 2020-05-24 18:16 | PROVIDER PROGRESS NOTE ---
Assessment/Plan - Problem List (1) Opioid overdose Qualifiers: Encounter type: subsequent encounter Injury intent: accidental or unintentional Qualified Code(s): T40.2X1D - Poisoning by other opioids, accidental (unintentional), subsequent encounter Assessment/Plan: Social work and see him today as he is now medically stable, has his short-term memory back (except for forgetting the events after playing cards and drinking wine. (2) Sternal pain Assessment/Plan: The patient had 5 to 10 minutes of CPR done by an RN (his girlfriend) along with rescue breathing when he had a respiratory arrest from the opioids. He has pain on deep inspiration and is very tender to touch over the entire sternum. We will order rib series and sternal x-rays to evaluate for fractures Tylenol is not relieving the pain, he is getting benefit from Toradol and Tramadol. (3) Alcohol intoxication Qualifiers: Qualified Code(s): F10.921 - Alcohol use, unspecified with intoxication delirium Assessment/Plan: Social Work was able to learn today that this man had alcohol abuse history and is in his 3rd month out of 6-month outpatient alcohol rehab program. He relapsed. He did not reach out to his support system and is very remorseful about this and embarrassed. Social work to ascertain how he will reenter that abstinence program. He is diaphoretic but not tremulous and tachycardia has improved. We will order a CIWA protocol. (4) Hypertension Qualifiers: Hypertension type: essential hypertension Qualified Code(s): I10 - Essential (primary) hypertension Assessment/Plan: He was "prehypertensive" and on no medications before this admission. (5) Hx of sleep apnea Assessment/Plan: As per history. (6) Acute respiratory failure with hypoxia Assessment/Plan: Resolved (7) Fever Assessment/Plan: No recurrence of fever, chest x-ray done this morning shows no infiltrate or suspicion of pneumonitis. I suspect he has atelectasis after having pleuritic pain.. Will start incentive spirometry. We will stop the empiric Flagyl (8) Aspiration into respiratory tract Assessment/Plan: No subsequent pulmonary symptoms - Current Meds Current Meds: Current Medications Generic Name Dose Route Start Last Admin Trade Name Freq PRN Reason Stop Dose Admin Ketorolac Tromethamine 30 mg 05/23/20 16:48 05/24/20 12:41 Ketorolac 30 Mg/Ml Vial IVP 05/28/20 16:47 30 mg Q6HR PRN Administration Severe Pain Polyethylene Glycol 17 gm 05/24/20 09:00 05/24/20 09:20 Polyethylene Glycol 3350 17 Gm Packet PO 17 gm DAILY EUSEBIA Administration Multivit/Folic Acid/Iron 1 tab 05/24/20 11:00 05/24/20 12:39 Vitamin Tablet PO 1 tab DAILY EUSEBIA Administration Sodium Chloride 10 ml 05/22/20 21:33 05/24/20 06:19 Sodium Chloride Flush 0.9% 10 Ml Syringe IVP 10 ml PRN PRN Administration NEEDED PER PROVIDER ORDERS Sodium Chloride 10 ml 05/23/20 01:00 05/24/20 17:54 Sodium Chloride Flush 0.9% 10 Ml Syringe IVP 10 ml 0100,0900,1700 EUSEBIA Administration Thiamine HCl 100 mg 05/24/20 11:00 05/24/20 12:40 Thiamine 100 Mg Tablet PO 100 mg DAILY EUSEBIA Administration Tramadol HCl 50 mg 05/24/20 02:16 05/24/20 17:53 Tramadol 50 Mg Tablet PO 50 mg Q4HR PRN Administration PAIN - Lab Result Fish Bone Diagrams: 05/24/20 03:15 05/24/20 03:15 - Additional Planning My Orders: My Active Orders 05/24/20 10:44 CIWA - AR Score Card [RC] Q4HR Social Work Consult [CONS] Routine LORazepam INJ [Ativan Inj (Vial)] 1 mg IVP Q30M PRN 05/24/20 10:48 Acetaminophen [Tylenol] 650 mg PO Q4HR PRN 05/24/20 11:00 Vitamin [Trinatal Rx 1] 1 tab PO DAILY Thiamine [Vitamin B-1] 100 mg PO DAILY 05/24/20 11:33 Telemetry-Discontinue [RC] .ONCE 05/24/20 21:00 Famotidine [Pepcid] 20 mg PO BID Objective Vital Signs: Vital Signs - 24 hr 05/23/20 05/23/20 05/23/20 19:00 20:00 23:50 Temperature 36.6 C 37.4 C Heart Rate Heart Rate [ 87 91 87 Monitoring electrodes] Respiratory 12 14 19 Rate Blood Pressure 140/98 H 131/96 H 137/94 H [Right Brachial artery] O2 Saturation 100 99 96 05/24/20 05/24/20 05/24/20 02:14 04:00 08:00 Temperature 36.8 C 37.1 C Heart Rate Heart Rate [ 90 84 Monitoring electrodes] Respiratory 20 20 Rate Blood Pressure 146/99 H 132/66 H [Right Brachial artery] O2 Saturation 98 05/24/20 05/24/20 05/24/20 13:00 15:20 17:48 Temperature 36.8 C 36.8 C 36.7 C Heart Rate 86 Heart Rate [ 86 87 Monitoring electrodes] Respiratory 17 18 18 Rate Blood Pressure 136/91 H 151/102 H [Right Brachial artery] O2 Saturation 96 96 97 Oxygen O2 Source Room air I&O (Last 24 Hrs): Intake and Output Totals x24h 05/22/20 05/23/20 05/24/20 23:59 23:59 23:59 Intake Total 8595.384 9264.829 1530 Output Total 800 1935 550 Balance 056.292 4228.829 980 General: Alert, Oriented x3 HEENT: Atraumatic, EOMI Neck: Supple, No JVD Neuro: Alert, Non Focal, Other (No nystagmus, no liver flap. He now has most of his memory back and the last thing he remembers was drinking wine and then waking up heree.) Cardiovascular: Regular rate, No murmurs Respiratory: No respiratory distress, Breath sounds nml, Other (Chest is tender to light palpation over the sternal area and xiphoid process.) Abdomen: Normal bowel sounds, Soft Extremities: No edema - Results Results: Laboratory Results WBC 11.6 x10^3/uL (4.8-10.8) H 05/24/20 03:15 RBC 3.92 10^6/uL (4.70-6.10) L 05/24/20 03:15 Hgb 11.6 g/dL (14.0-18.0) L 05/24/20 03:15 Hct 34.5 % (42.0-52.0) L 05/24/20 03:15 MCV 88.0 fL (80.0-94.0) 05/24/20 03:15 MCH 29.6 pg (27.0-31.0) 05/24/20 03:15 MCHC 33.6 g/dL (32.0-36.0) 05/24/20 03:15 RDW 12.5 % (12.0-15.0) 05/24/20 03:15 Plt Count 183 10^3/uL (130-450) 05/24/20 03:15 MPV 10.2 fL (7.4-11.4) 05/24/20 03:15 Neut # (Auto) 7.6 10^3/uL (1.5-6.6) H 05/24/20 03:15 Lymph # (Auto) 2.7 10^3/uL (1.5-3.5) 05/24/20 03:15 [place] # (Auto) 1.1 10^3/uL (0.0-1.0) H 05/24/20 03:15 Eos # (Auto) 0.2 10^3/uL (0.0-0.7) 05/24/20 03:15 Baso # (Auto) 0.0 10^3/uL (0.0-0.1) 05/24/20 03:15 Absolute Nucleated RBC 0.00 x10^3/uL 05/24/20 03:15 Nucleated RBC % 0.0 /100WBC 05/24/20 03:15 Bld Gas Analysis Time 2320 05/22/20 23:15 Sample Site RIGHT RADIAL 05/22/20 23:15 ABG pH 7.38 (7.35-7.45) 05/22/20 23:15 ABG pCO2 29 mmHg (34-45) L 05/22/20 23:15 ABG pO2 82 mmHg (80-100) 05/22/20 23:15 ABG HCO3 16.5 mmol/L (22.0-26.0) L 05/22/20 23:15 ABG Total CO2 17.4 MMOL/L (21.0-29.0) L 05/22/20 23:15 ABG O2 Saturation 95 % (94-98) 05/22/20 23:15 ABG Base Excess -7.2 mmol/L (-2.0-3.0) L 05/22/20 23:15 Selwyn Test POSITIVE 05/22/20 23:15 VBG pH 7.250 (7.31-7.41) L 05/22/20 20:56 VBG pCO2 36.1 mmHg (41-51) L 05/22/20 20:56 VBG pO2 49.5 mmHg (25-47) H 05/22/20 20:56 VBG HCO3 15.5 mmol/L (23-28) L 05/22/20 20:56 VBG Total CO2 16.6 mmol/L (24-29) L 05/22/20 20:56 VBG O2 Saturation 76.8 % (60-80) 05/22/20 20:56 VBG Base Excess -10.8 mmol/L (-2 - +2) L 05/22/20 20:56 Respiration Rate 20 b/min 05/22/20 23:15 O2 Delivery Device VENTILATOR 05/22/20 23:15 Vent Mode SIMV 05/22/20 23:15 FiO2 40.00 05/22/20 23:15 Tidal Volume 550 mL 05/22/20 23:15 PEEP 5 cmH2O 05/22/20 23:15 Pressure Support Vent 10 cmH2O 05/22/20 23:15 Sodium 141 mmol/L (135-145) 05/24/20 03:15 Potassium 3.4 mmol/L (3.5-5.0) L 05/24/20 03:15 Chloride 108 mmol/L (101-111) 05/24/20 03:15 Carbon Dioxide 25 mmol/L (21-32) 05/24/20 03:15 Anion Gap 8.0 (6-13) 05/24/20 03:15 BUN 12 mg/dL (6-20) 05/24/20 03:15 Creatinine 0.9 mg/dL (0.6-1.2) 05/24/20 03:15 Estimated GFR (MDRD) 96 (>89) 05/24/20 03:15 Glucose 113 mg/dL (70-100) H 05/24/20 03:15 Calcium 8.6 mg/dL (8.5-10.3) 05/24/20 03:15 Phosphorus 2.3 mg/dL (2.5-4.6) L 05/24/20 03:15 Magnesium 1.8 mg/dL (1.7-2.8) 05/24/20 03:15 Total Bilirubin 0.5 mg/dL (0.2-1.0) 05/23/20 05:30 AST 38 IU/L (10-42) 05/23/20 05:30 ALT 48 IU/L (10-60) 05/23/20 05:30 Alkaline Phosphatase 46 IU/L (42-121) 05/23/20 05:30 Total Protein 6.7 g/dL (6.7-8.2) 05/23/20 05:30 Albumin 3.9 g/dL (3.2-5.5) 05/23/20 05:30 Globulin 2.8 g/dL (2.1-4.2) 05/23/20 05:30 Albumin/Globulin Ratio 1.4 (1.0-2.2) 05/23/20 05:30 Lipase 34 U/L (22-51) 05/22/20 20:56 TSH 1.86 uIU/mL (0.34-5.60) 05/22/20 20:56 Urine Color YELLOW 05/23/20 10:47 Urine Clarity CLEAR (CLEAR) 05/23/20 10:47 Urine pH 6.0 PH (5.0-7.5) 05/23/20 10:47 Ur Specific Nicasio >=1.030 (1.002-1.030) H 05/23/20 10:47 Urine Protein TRACE mg/dL (NEGATIVE) 05/23/20 10:47 Urine Glucose (UA) NEGATIVE mg/dL (NEGATIVE) 05/23/20 10:47 Urine Ketones NEGATIVE mg/dL (NEGATIVE) 05/23/20 10:47 Urine Occult Blood MODERATE (NEGATIVE) H 05/23/20 10:47 Urine Nitrite NEGATIVE (NEGATIVE) 05/23/20 10:47 Urine Bilirubin NEGATIVE (NEGATIVE) 05/23/20 10:47 Urine Urobilinogen 0.2 (NORMAL) E.U./dL (NORMAL) 05/23/20 10:47 Ur Leukocyte Esterase NEGATIVE (NEGATIVE) 05/23/20 10:47 Urine RBC 6-10 /HPF (0-5) H 05/23/20 10:47 Urine WBC 0-3 /HPF (0-3) 05/23/20 10:47 Ur Squamous Epith Cells NONE SEEN (<= Few) 05/23/20 10:47 Amorphous Sediment Rare /LPF 05/22/20 20:51 Urine Bacteria None Seen /HPF (None Seen) 05/23/20 10:47 Urine Casts 6-10 Hyaline Casts /LPF 05/22/20 20:51 Urine Mucus Few Strands 05/22/20 20:51 Ur Microscopic Review INDICATED 05/22/20 20:51 Urine Culture Comments NOT INDICATED 05/23/20 10:47 Nasal Adenovirus (PCR) NOT DETECTED 05/22/20 21:23 Nasal B. parapertussis DNA (PCR) NOT DETECTED 05/22/20 21:23 Nasal Coronavir 229E PCR NOT DETECTED 05/22/20 21:23 Nasal Coronavir HKU1 PCR NOT DETECTED 05/22/20 21:23 Nasal Coronavir NL63 PCR NOT DETECTED 05/22/20 21:23 Nasal Coronavir OC43 PCR NOT DETECTED 05/22/20 21:23 Nasal Enterovir/Rhinovir PCR NOT DETECTED 05/22/20 21:23 Nasal Influenza B PCR NOT DETECTED 05/22/20 21:23 Nasal Influenza A PCR NOT DETECTED 05/22/20 21:23 Nasal Parainfluen 1 PCR NOT DETECTED 05/22/20 21:23 Nasal Parainfluen 2 PCR NOT DETECTED 05/22/20 21:23 Nasal Parainfluen 3 PCR NOT DETECTED 05/22/20 21:23 Nasal Parainfluen 4 PCR NOT DETECTED 05/22/20 21:23 Nasal RSV (PCR) NOT DETECTED 05/22/20 21:23 Nasal Screen MRSA (PCR) NEGATIVE (NEGATIVE) 05/22/20 22:10 Nasal B.pertussis DNA PCR NOT DETECTED 05/22/20 21:23 Nasal C.pneumoniae (PCR) NOT DETECTED 05/22/20 21:23 King Human Metapneumo PCR NOT DETECTED 05/22/20 21:23 Nasal M.pneumoniae (PCR) NOT DETECTED 05/22/20 21:23 Nasal SARS-CoV-2 (PCR) NOT DETECTED 05/22/20 21:23 Salicylates < 6.0 mg/dL 05/22/20 20:56 Urine Opiates Screen POSITIVE (NEGATIVE) H 05/22/20 20:51 Ur Oxycodone Screen POSITIVE (NEGATIVE) H 05/22/20 20:51 Urine Methadone Screen NEGATIVE (NEGATIVE) 05/22/20 20:51 Ur Propoxyphene Screen NEGATIVE (NEGATIVE) 05/22/20 20:51 Acetaminophen < 10 ug/mL (10-30) L 05/22/20 20:56 Ur Barbiturates Screen NEGATIVE (NEGATIVE) 05/22/20 20:51 Ur Tricyclics Screen NEGATIVE (NEGATIVE) 05/22/20 20:51 Ur Phencyclidine Scrn NEGATIVE (NEGATIVE) 05/22/20 20:51 Ur Amphetamine Screen NEGATIVE (NEGATIVE) 05/22/20 20:51 U Methamphetamines Scrn NEGATIVE (NEGATIVE) 05/22/20 20:51 U Benzodiazepines Scrn NEGATIVE (NEGATIVE) 05/22/20 20:51 Urine Cocaine Screen NEGATIVE (NEGATIVE) 05/22/20 20:51 U Cannabinoids Screen NEGATIVE (NEGATIVE) 05/22/20 20:51 Ethyl Alcohol 249.3 mg/dL 05/22/20 20:56
[2020-05-24] MEDS: FAMOTIDINE 20 MG TABLET PO SCH (19:55)
--- NOTE | 2020-05-24 20:02 | XRAY Report ---
PROCEDURE: Ribs 3 View BILAT INDICATIONS: Had CPR, has sternal pain rib pain, poss fractur TECHNIQUE: 5 views of the right ribs were acquired. COMPARISON: Concurrent x-ray of the chest. Chest x-ray 05/22/2020. FINDINGS: Surgical changes and devices: There is a right internal jugular catheter with the tip in the superior vena cava. Bones and chest wall: No displaced rib fracture identified. No suspicious bony lesions. Overlying s oft tissues appear unremarkable. Lungs and pleura: The visualized lung appears clear. No pleural effusions or pneumothorax are visib le. IMPRESSION: 1. No displaced rib fracture identified. Reviewed by: Chris Curry MD on 05/24/2020 8:01 PM PST Approved by: Chris Curry MD on 05/24/2020 8:01 PM PST Station ID: [id number]
--- NOTE | 2020-05-24 20:27 | XRAY Report ---
PROCEDURE: Sternum INDICATIONS: Had CPR, sternal pain, eval for fracture TECHNIQUE: 2 views of the sternum acquired. COMPARISON: Concurrent x-ray of the RIBS and chest 05/24/2020. FINDINGS: Bones: No definite depressed or displaced sternal fracture. No displaced rib fracture identified. No suspicious bony lesions. Soft tissues: Retrosternal soft tissues appear normal. IMPRESSION: 1. No definite displaced or depressed sternal fracture. Reviewed by: Chris Curry MD on 05/24/2020 8:26 PM PST Approved by: Chris Curry MD on 05/24/2020 8:26 PM PST Station ID: [id number]
[2020-05-24] MEDS ORDERED: DOCUSATE SODIUM 250 MG CAPSULE PO PRN (22:15)
[2020-05-25] MEDS: traMADol 50 MG TABLET PO PRN ×2 (00:45→08:13)
[2020-05-25] MEDS: SODIUM CHLORIDE FLUSH 0.9% 10 ML SYRINGE IVP SCH ×2 (00:46→08:25)
[2020-05-25] MEDS: KETOROLAC 30 MG/ML VIAL IVP PRN (05:35)
[2020-05-25 06:02] LABS: PHOSPHORUS 3.4 mg/dL (2.5-4.6)
[2020-05-25] MEDS ORDERED: PHENOL THROAT SPRAY 177 ML MM PRN (07:49)
[2020-05-25] MEDS: PRENATAL VITAMIN TABLET PO SCH (08:21)
[2020-05-25] MEDS: FAMOTIDINE 20 MG TABLET PO SCH (08:21)
[2020-05-25] MEDS: polyethylene glycoL 3350 17 GM PACKET PO SCH (08:24)
[2020-05-25] MEDS: THIAMINE 100 MG TABLET PO SCH (08:55)
--- NOTE | 2020-05-25 11:06 | Discharge Plan ---
Discharge Plan Problem Reviewed?: Yes Disposition: Home, Self Care Condition: Stable Diet: Regular Activity Restrictions: Activity as Tolerated Shower Restrictions: No Driving Restrictions: No Health Concerns: Of ongoing alcohol abuse for which you are on outpatient rehab, you came [facility] and had been drinking and heroin injection. This caused you to go into respiratory failure. You stop breathing and dropped her oxygen levels. EMS had to put a tube down her throat and breathe for you. You came to our emergency room and had aspirated some of your vomit into your lungs as well. You have been able to be extubated. You are breathing on your own. Oxygen levels are normal. You are walking on your own. However there is some short-term memory loss, and thought process slowing. Plan of Treatment: 1. If you continue to have problems with your thinking process and memory, consider being referred for neuropsychiatric evaluation to see how much damage there may be 2. Please see your primary care provider who is adult nurse practitioner Yessi Tejada at [facility], [place] 3. You will continue to see your outpatient drug and alcohol rehab program, and see your counselor. 4. Please take a daily multivitamin. A vitamin is best since it has a lot of B vitamins which you need in the face of alcohol abuse. Care Goals: To never drink again, and to never use any other recreational substance Assessment: Patient understands goals. He will try to follow through. No Smoking: If you smoke, Please STOP! Call for help.
--- NOTE | 2020-05-25 12:54 | DISCHARGE SUMMARY ---
Discharge Summary Admit Date: 05/22/20 Discharge Date: 05/25/20 Discharging Provider: Gail Gibson MD Primary Care Provider: [facility] Code Status: Attempt Resuscitation Condition at Discharge: Stable Discharge Disposition: 01 Home, Self Care - DIAGNOSES Discharge Diagnoses with Status of Each Condition: 1. Acute respiratory failure with hypoxia 2. 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 Opioid overdose 4. Hypertension 5. Costochondral chest pain 6. Acute alcohol intoxication 7. Aspiration into respiratory tract - HPI History of Present Illness: Mr. Carter is a 34-year-old white male who is brought in by ambulance to the emergency room after heroin overdose. Unfortunately there is no demographic information available for him so I am unable to get any history other than what is provided by the emergency room doctor and architecture drafter. architecture drafter report that he has a past medical history of high blood pressure but there is no medications listed for him. Unobtainable. He was drinking with friends in a friend's apartment. He decided to do a heroin shot in his deltoid. He had a loss of consciousness shortly after that. He was unarousable and they panicked and started CPR. EMS was called. By the time EMS arrived there, they did find a pulse. However he was with a very slow respiration rate and he was intubated after succinylcholine and vecuronium. In the emergency room he has a Dipika Coma Scale of 3. His vital signs are normal. On 50% FiO2, his O2 sat was 88%. Although there was no witnessed aspiration, the ET tube has copious thick secretions with possible vomitus. His alcohol level is 249. His talk screen is positive for opiates, oxycodone, ethyl alcohol to 49.3. Salicylates negative, acetaminophen less than 10. All other substances negative on the tox screen. We are placing him in the ICU. He already has a central line. We will observe him overnight and see if we can start extubating him tomorrow morning. He will be sedated and paralyzed. We will repeat chest x-rays to make sure he is not developing aspiration pneumonia. Past Medical History Cardiovascular: reports: Hypertension Other Past Medical History: Unobtainable at this time - CONSULTS | PROCEDURES Procedures: 1. For chest x-rays. All were done for acute cardiopulmonary processes and their evaluation. Central line placement. ET tube placement. All were negative for infiltrate. 2. Rib x-rays had no displaced rib fractures 3. Sternal x-rays had no definite displaced or depressed sternal fracture - HOSPITAL COURSE Hospital Course: He was placed in the ICU, stayed on propofol drip with occasional vecuronium overnight. After overnight stay, the patient was waking up, struggling against restraints that were required. We quickly reduce sedation, and he was able to be extubated. We did fear aspiration because of high fevers. We added Flagyl. He also had sternal pain. CPR had been done at the scene by his girlfriend and we think that he had costochondritis. Social work was able to ascertain that he had an alcohol abuse history and was in his third month of 6-month outpatient alcohol rehab program. He had relapse. While his prehospital past medical history is that of hypertension, he states that he did not get diagnosed with actual hypertension. He was "prehypertension" and did not have any medications. He did have some hypokalemia but that resolved with supplementation. After May 23 he no longer had a fever. He was Covid negative. Chest x-ray had no pneumonias or changes of aspiration pneumonitis. The only thing that was noticed after extubation was that of mild cognitive delay, memory loss. He remembers, vaguely, the incident. But not much before that and remembers nothing after that. As such he is felt stable for discharge. Greater than 30 minutes was spent coordinating discharge. He is ambulating in the room. Eating his food. Discharge exam was 36.7 temperature. Pulse 65. Blood pressure 142/97. He is consistently hypertensive during his stay. Systolics were in the 140s to 150s. Respiration is 16 and he is 100% on room air. He is a 6 foot 2 white male with a weight of 104.5 kg. Well-nourished well-developed. Supple neck. Clear lungs. No increased respiratory effort. PMI normally placed. And normal abdominal exam. Benign. Extremities without edema. I have asked him to do: 1. Follow-up with his primary care provider Yessi Tejada who is an [employer]TER at [facility], [place], operated by [facility] 2. If he continues to have cognitive deficits or memory problems consider neuropsych evaluation because I do not know how long he was anoxic before EMS arrived 3. Consider starting antihypertensive since he is consistently hypertensive 4. Follow-up with his outpatient rehab clinic and therapy 5. Never did drink alcohol again, and to do no form of recreational substances. - ALLERGIES Allergies/Adverse Reactions: Allergies Allergy/AdvReac Type Severity Reaction Status Date / Time No Known Drug Allergies Allergy Verified 05/22/20 20:59 - MEDICATIONS Home Medications: Ambulatory Orders Medication Instructions Recorded Confirmed Home Medications Unobtainable 05/22/20 05/22/20 [HOME MEDICATIONS UNOBTAINABLE] - LABS Result Diagrams: 05/24/20 03:15 05/24/20 03:15
[2020-05-25 14:20] VITALS: BP 146/97
== END 2020-05-25 14:10 | disposition home or self-care (01) | DRG 189 ==
LOC: ED 20:32 → ICU 21:33 → MS2 05-24 17:34
PROVIDERS: ADMIT Specialist; ATTEND Specialist
DX: J96.01 Acute respiratory failure with hypoxia (principal); F10.121 Alcohol abuse with intoxication delirium; T40.1X1A Poisoning by heroin, accidental (unintentional), initial encounter; Y92.009 Unspecified place in unspecified non-institutional (private) residence as the place of occurrence of the external cause; G47.37 Central sleep apnea in conditions classified elsewhere; I10 Essential (primary) hypertension; T17.918A Gastric contents in respiratory tract, part unspecified causing other injury, initial encounter; R50.9 Fever, unspecified; R07.89 Other chest pain; Z78.1 Physical restraint status; Z20.822 Contact with and (suspected) exposure to COVID-19; G31.84 Mild cognitive impairment of uncertain or unknown etiology
CPT/HCPCS: 0202U; 36415; 36556; 36600; 51702; 71045; 71110; 71120; 80048; 80053; 80306; 80307; 80320; 80329; 81001; 82803; 83690; 83735; 84100; 84443; 85025; 87150; 94002; 94003; 99291; A9270; J0131; J1650; J2060; J7120; 81003; 87086; 94770